=== PATIENT | female | born 1985 | race American Indian/Alaskan Native ===

== ENCOUNTER 2019-09-03 16:36 | Emergency (ER) | payer MEDICAID ==
[2019-09-03] MEDS ORDERED: Triamcinolone Acetonide 40 MG/ML 1 ML MDV INJECT ONE (18:26)
--- NOTE | 2019-09-03 18:28 | EDM.PDOC ---
ED HPI GENERAL MEDICAL PROBLEM - General Chief Complaint: Skin Complaint Stated Complaint: BITES ON FEET Time Seen by Provider: 09/03/19 18:00 Source of Information: Reports: Patient, RN, RN Notes Reviewed History Limitations: Reports: No Limitations - History of Present Illness INITIAL COMMENTS - FREE TEXT/NARRATIVE: Patient presents to ER with complaint of insect bite itching all the time. Denies shortness of breath swelling of the tongue or throat. On her feet bilaterally. Patient says she has been using cortisone cream. Patient states that these bites occurred on 30 August, but states she has to go back to work tonight and would like a work note. Onset: Sudden Onset Date: 08/31/19 Bilateral Feet Pain Score (Numeric/FACES): 6 - Related Data Allergies Allergy/AdvReac Type Severity Reaction Status Date / Time amoxicillin Allergy Anaphylactic Verified 09/03/19 16:56 Shock bee venom protein (honey bee) Allergy Hives Verified 09/03/19 16:56 Home Meds: Home Meds . [No Known Home Meds] 09/03/19 [History] Past Medical History - Past Health History Medical/Surgical History: Denies Medical/Surgical History Social & Family History - Tobacco Use Smoking Status *Q: Current Every Day Smoker Years of Tobacco use: 12 Packs/Tins Daily: 0.2 - Caffeine Use Caffeine Use: Reports: None - Recreational Drug Use Recreational Drug Use: No ED ROS GENERAL - Review of Systems Review Of Systems: Comprehensive ROS is negative, except as noted in HPI. ED EXAM, SKIN/RASH Exam: See Below Exam Limited By: No Limitations General Appearance: Alert, WD/WN, Mild Distress, Other (itching feet) Eye Exam: Bilateral Eye: EOMI, Normal Inspection Ears: Normal External Exam, Hearing Grossly Normal Nose: Normal Inspection Throat/Mouth: Normal Inspection Head: Atraumatic, Normocephalic Neck: Normal Inspection Respiratory/Chest: No Respiratory Distress, Lungs Clear, Normal Breath Sounds, No Accessory Muscle Use, Chest Non-Tender Cardiovascular: Normal Peripheral Pulses, Regular Rate, Rhythm, No Edema, No Gallop, No JVD, No Murmur, No Rub Peripheral Pulses: 2+: Radial (L), Radial (R) GI/Abdominal: Normal Bowel Sounds, Soft, Non-Tender (Female) Exam: Deferred Rectal (Female) Exam: Deferred Back Exam: Normal Inspection, Full Range of Motion, NT Extremities: Normal Inspection, Normal Range of Motion, Non-Tender, No Pedal Edema, Normal Capillary Refill Neurological: Alert, Oriented, CN II-XII Intact, Normal Cognition, Normal Gait, Normal Reflexes, No Motor/Sensory Deficits Psychiatric: Normal Affect, Normal Mood Skin: Warm, Dry, Normal Color, Other (Several insect bites on the feet bilaterally) Location, Skin: Lower Extremity, Right, Lower Extremity, Left Characteristics: Urticarial Lymphatic: No Adenopathy Course - Vital Signs Last Recorded V/S: Last Vital Signs Temp 98.6 F 09/03/19 16:53 Pulse 74 09/03/19 16:53 Resp 18 09/03/19 16:53 BP 134/77 09/03/19 16:53 Pulse Ox 100 09/03/19 16:53 - Orders/Labs/Meds Meds: Medications Discontinued Medications Generic Name Dose Route Start Last Admin Trade Name Freq PRN Reason Stop Dose Admin Triamcinolone Acetonide 40 mg 09/03/19 18:26 Kenalog-40 INJECT 09/03/19 18:27 ONETIME ONE Departure - Departure Time of Disposition: 18:28 Disposition: Home, Self-Care 01 Condition: Good Clinical Impression: Insect bites Qualifiers: Encounter type: initial encounter Site of insect bite: foot Laterality: unspecified laterality Qualified Code(s): S90.869A - Insect bite (nonvenomous), unspecified foot, initial encounter; W57.XXXA - Bitten or stung by nonvenomous insect and other nonvenomous arthropods, initial encounter - Discharge Information *PRESCRIPTION DRUG MONITORING PROGRAM REVIEWED*: No *COPY OF PRESCRIPTION DRUG MONITORING REPORT IN PATIENT KELLI: No Instructions: Insect Bite, Adult, [id number] Forms: ED Department Discharge Additional Instructions: Continue to use cortisone cream [id number] May use Benadryl as directed [id number] Follow-up with your primary care provider Sepsis Event Note (ED) - Evaluation Sepsis Screening Result: No Definite Risk - Focused Exam Vital Signs: Vital Signs Temp Pulse Resp BP Pulse Ox 09/03/19 16:53 98.6 F 74 18 134/77 100
== END 2019-09-03 18:43 | disposition home or self-care (01) ==
LOC: DL.ED 16:36
DX: S90.861A Insect bite (nonvenomous), right foot, initial encounter (principal); S90.862A Insect bite (nonvenomous), left foot, initial encounter; L50.9 Urticaria, unspecified; F17.210 Nicotine dependence, cigarettes, uncomplicated; Z88.1 Allergy status to other antibiotic agents; Z91.030 Bee allergy status; W57.XXXA Bitten or stung by nonvenomous insect and other nonvenomous arthropods, initial encounter
CPT/HCPCS: 99282; J3301

== ENCOUNTER 2021-01-23 12:44 | Emergency (ER) | payer MEDICAID ==
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
[2021-01-23] MEDS ORDERED: Ketorolac 30 MG/ML SDV IM ONE (13:40)
--- NOTE | 2021-01-23 14:21 | CR ---
PROCEDURE INFORMATION: Exam: XR Lumbosacral Spine Exam date and time: 01/23/2021 1:58 PM Age: 35 years old Clinical indication: Low back pain; Additional info: Midline lower back pain, radiates to right TECHNIQUE: Imaging protocol: XR of the lumbosacral spine. Views: 2 or 3 views. COMPARISON: No relevant prior studies available. FINDINGS: Bones/joints: Normal. No acute fracture. Normal alignment. Soft tissues: Unremarkable. IMPRESSION: No acute findings.
== END 2021-01-23 14:40 | disposition home or self-care (01) ==
LOC: DL.ED 12:44
DX: M54.50 Low back pain, unspecified (principal); Z88.0 Allergy status to penicillin; Z91.030 Bee allergy status; Z72.0 Tobacco use
CPT/HCPCS: 72100; 96372; 99283; J1885